=== PATIENT | female | born 1975 | race African-American/Black ===

== ENCOUNTER 2016-10-25 06:57 | Emergency (ER) | payer OTHER ==
[2016-10-25 07:10] VITALS: BP 119/76; PULSE 66; TEMP 98.3; BMI 32.8
[2016-10-25] MEDS ORDERED: IBUPROFEN 600 MG TABLET (FP) PO ONE ×2 (07:52→08:14)
--- NOTE | 2016-10-25 07:53 | PDOC ---
History of Present Illness - General Chief Complaint: Abscess Boil Stated Complaint: BREAST PROBLEM Time Seen by Provider: 10/25/16 07:40 History Source: Patient Exam Limitations: No Limitations - History of Present Illness Initial Comments: 10/25/16 09:52 41 yr female no medical history with painful lump to left chest wall started last week and "popped" then re-appeared and is now getting larger. Pt denies fever or chills no shortness of breath. Pt states she had a mammogram last month which was normal has no breast pain or tenderness. Severity: Yes: mild Past History - Past Medical History Allergies/Adverse Reactions: Allergies Allergy/AdvReac Type Severity Reaction Status Date / Time No Known Allergies Allergy Verified 10/25/16 07:09 Home Medications: Ambulatory Orders NK [No Known Home Medication] 07/03/16 Asthma: Yes Thyroid Disease: Yes - Surgical History Abdominal Surgery: Yes (HERNIA REPAIR/LAP BAND) Cholecystectomy: Yes - Immunization History Immunization Up to Date: Yes - Psycho/Social/Smoking Cessation Hx Anxiety: No Suicidal Ideation: No Smoking Status: No Smoking History: Never smoked Have you smoked in the past 12 months: No Number of Cigarettes Smoked Daily: 0 Hx Alcohol Use: No Drug/Substance Use Hx: No Substance Use Type: None Review of Systems - Review of Systems Able to Perform ROS?: Yes Is the patient limited Tajik proficient: No Constitutional: No: Symptoms Reported HEENTM: No: Symptoms Reported Respiratory: No: Symptoms reported Cardiac (ROS): No: Symptoms Reported ABD/GI: No: Symptoms Reported : No: Symptoms Reported Musculoskeletal: No: Symptoms Reported Integumentary: Yes: Symptoms Reported *Physical Exam - Vital Signs Last Vital Signs Temp Pulse Resp BP Pulse Ox 98.3 F 66 20 119/76 98 10/25/16 07:07 10/25/16 07:07 10/25/16 07:07 10/25/16 07:07 10/25/16 07:07 - Physical Exam General Appearance: Yes: Nourished, Appropriately Dressed HEENT: positive: EOMI, DOYLE, Normal ENT Inspection, TMs Normal, Pharynx Normal Neck: positive: Supple. negative: Tender Respiratory/Chest: positive: Lungs Clear, Normal Breath Sounds Cardiovascular: positive: Regular Rhythm, Regular Rate Gastrointestinal/Abdominal: positive: Normal Bowel Sounds, Soft Lymphatic: negative: Adenopathy Musculoskeletal: positive: Normal Inspection Extremity: positive: Normal Capillary Refill, Normal Inspection, Normal Range of Motion Integumentary: positive: Normal Color, Dry, Warm, Other (right anterior chest wall at top of breast sternal border with tender indurated 2cm area of swelling with a blackhead center. no drainage, no fluctuant, no redness or surrounding eveidence of cellulitus ) Medical Decision Making - Medical Decision Making 10/25/16 09:55 cc: painful swollen area to chest most likely abscess, no fluctuance will refer to breast surgeon for drainage pt agrees and understands the dc plan no evidence of infection *DC/Admit/Observation/Transfer Diagnosis at time of Disposition: Abscess - Discharge Dispostion Disposition: HOME Condition at time of disposition: Good - Referrals Referrals: Ernesto Jasso MD [Primary Care Provider] - Patel De Santiago MD [Staff Physician] - - Patient Instructions Additional Instructions: follow with the breast surgeon for further care take motrin as needed for pain warm compresses to the area every 3-4 hrs for 10-15 minutes return to ER if any fever, redness or increase in pain or other worsening symptoms
== END 2016-10-25 08:26 | disposition home or self-care (01) ==
LOC: JER 06:57
DX: N61.1 Abscess of the breast and nipple (principal); E07.9 Disorder of thyroid, unspecified; Z98.84 Bariatric surgery status
CPT/HCPCS: 99281-25

== ENCOUNTER 2021-01-06 05:37 | Emergency (ER) | payer BC, OTHER ==
[2021-01-06 06:43] VITALS: BMI 36.3
[2021-01-06 06:51] LABS: BASO % 0.8 % (0-2.0); EOS % 4.4 % (0-4.5); HEMATOCRIT 37.3 % (32.4-45.2); HEMOGLOBIN 12.3 GM/dL (10.7-15.3); LYMPH % 28.3 % (8-40); MCH 27.6 pg (25.7-33.7); MCHC 32.9 g/dl (32.0-36.0); MEAN CELL VOLUME 83.9 fl (80-96); MEAN PLT VOLUME 7.1 fl (7.5-11.1); NEUT % 59.5 % (42.8-82.8); PLATELET COUNT 282 10^3/uL (134-434); RBC 4.45 M/mm3 (3.60-5.2); WHITE BLOOD COUNT 6.4 K/mm3 (4.0-10.0)
[2021-01-06 07:09] LABS: CALCIUM 9.3 mg/dL (8.5-10.1)
[2021-01-06 07:10] LABS: ALBUMIN 3.8 g/dl (3.4-5.0); BLOOD UREA NITROGEN 10.5 mg/dL (7-18)
[2021-01-06 07:13] LABS: CREATININE 0.9 mg/dL (0.55-1.3)
[2021-01-06 07:14] LABS: BILIRUBIN,TOTAL 0.6 mg/dL (0.2-1); TOT PROT 7.3 g/dl (6.4-8.2)
[2021-01-06] MEDS ORDERED: MAG HYDROX/AL HYDROX/SIMETH 30 ML UNIT-DOSE CUP PO ONE (07:42)
[2021-01-06] MEDS ORDERED: FAMOTIDINE 20 MG/50 ML IVPB 20 MG/50 ML MG IVPB ONE ×2 (07:42→08:08)
[2021-01-06] MEDS ORDERED: SODIUM CHLORIDE 0.9% 500 ML INFUS.BAG IV ONE (07:44)
[2021-01-06 08:07] LABS: EPI CELLS >36 /uL (0-25.1); HYALINE CASTS 3 /uL (0-3.1); URINE APPEARANCE CLOUDY; URINE BACTERIA 1582 /uL (0-1359); URINE BILIRUBIN NEGATIVE (NEGATIVE); URINE COLOR YELLOW; URINE GLUCOSE (UA) NEGATIVE (NEGATIVE); URINE KETONE NEGATIVE (NEGATIVE); URINE LEUK ESTERASE TRACE (NEGATIVE); URINE NITRITE NEGATIVE (NEGATIVE); URINE PROTEIN NEGATIVE (NEGATIVE); URINE RBC 15 /uL (0-23.9); URINE WBC 29 /uL (0-25.8)
[2021-01-06] MEDS ORDERED: MAG HYDROX/AL HYDROX/SIMETH 30 ML UNIT-DOSE CUP ONE (08:13)
[2021-01-06] MEDS ORDERED: ACETAMINOPHEN 325 MG TABLET (FP) PO ONE (08:34)
[2021-01-06] MEDS ORDERED: IBUPROFEN 400 MG TABLET (FP) PO ONE ×2 (08:34→08:50)
[2021-01-06] MEDS ORDERED: ACETAMINOPHEN 325 MG TABLET (FP) ONE (08:49)
[2021-01-06 08:57] VITALS: BP 126/90; PULSE 63; TEMP 98.2
== END 2021-01-06 09:35 | disposition home or self-care (01) ==
LOC: JER 05:37
PROC: 3E033NZ Introduction of Analgesics, Hypnotics, Sedatives into Peripheral Vein, Percutaneous Approach (ICD-10-PCS; principal; 2021-01-06)
DX: R10.9 Unspecified abdominal pain (principal)
CPT/HCPCS: 36415; 80053; 81003; 83690; 84703; 85025; 87086; 99285-25

== ENCOUNTER 2022-07-18 05:53 | Emergency (ER) | payer OTHER ==
[2022-07-18 06:25] VITALS: BP 115/76; PULSE 65; RESP 18; TEMP 97.6; BMI 34.7
[2022-07-18] MEDS ORDERED: LIDOCAINE 5% TOPICAL PATCH TP ONE (08:16)
[2022-07-18] MEDS ORDERED: METHOCARBAMOL 500 MG TABLET PO ONE (08:16)
[2022-07-18] MEDS ORDERED: IBUPROFEN 600 MG TABLET (FP) PO ONE ×2 (08:16→08:21)
[2022-07-18] MEDS ORDERED: LIDOCAINE 5% TOPICAL PATCH ONE (08:21)
[2022-07-18] MEDS ORDERED: METHOCARBAMOL 500 MG TABLET ONE (08:21)
[2022-07-18] MEDS ORDERED: LIDOCAINE PATCH REMOVAL MC SCH (22:00)
== END 2022-07-18 09:22 | disposition home or self-care (01) ==
LOC: JERFT 05:53 → JER 05:53 → JERFT 09:22
DX: S46.812A Strain of other muscles, fascia and tendons at shoulder and upper arm level, left arm, initial encounter (principal); V49.40XA Driver injured in collision with unspecified motor vehicles in traffic accident, initial encounter
CPT/HCPCS: 99283-25